=== PATIENT | female | born 1985 | race Caucasian/White ===

== ENCOUNTER → 2021-02-25 | Outpatient (CLI) | payer BC | LOC: KOH-I 11:12 | DX: J45.909 Unspecified asthma, uncomplicated (principal) | CPT/HCPCS: 71046 ==

== ENCOUNTER → 2021-09-16 | Outpatient (CLI) | payer BC | LOC: KOH-I 15:22 | DX: M54.12 Radiculopathy, cervical region (principal) | CPT/HCPCS: 72050 ==